=== PATIENT | female | born 1970 | race Caucasian/White ===

== ENCOUNTER → 2016-09-24 | Outpatient (CLI) | payer MEDICAID | LOC: FIMAGING 12:43 | PROVIDERS: ATTEND Advanced Practice Midwife | DX: Z12.31 Encounter for screening mammogram for malignant neoplasm of breast (principal); N63 Unspecified lump in breast; Z80.3 Family history of malignant neoplasm of breast | CPT/HCPCS: G0202 ==

== ENCOUNTER → 2016-09-30 | Outpatient (CLI) | payer MEDICAID | LOC: FIMAGING 12:15 | PROVIDERS: ATTEND Advanced Practice Midwife | DX: N60.01 Solitary cyst of right breast (principal) ==

== ENCOUNTER → 2016-10-28 | Outpatient (CLI) | payer MEDICAID | LOC: FIMAGING 09:21 | PROVIDERS: ATTEND Physician Assistant | DX: R74.9 Abnormal serum enzyme level, unspecified (principal) ==

== ENCOUNTER → 2018-04-15 | Outpatient (CLI) | payer MEDICAID | LOC: FIMAGING 16:22 | DX: Z12.31 Encounter for screening mammogram for malignant neoplasm of breast (principal) ==